=== PATIENT | female | born 1945 | race Caucasian/White ===

== ENCOUNTER → 2016-12-10 | Outpatient (CLI) | payer OTHER, MEDICARE | LOC: BHFA 08:30 | PROVIDERS: ATTEND Internal Medicine Interventional Cardiology | DX: I25.10 Atherosclerotic heart disease of native coronary artery without angina pectoris (principal) | CPT/HCPCS: 78452; 93017; A9500 ==

== ENCOUNTER → 2016-12-26 | Outpatient (CLI) | payer OTHER, MEDICARE | LOC: FCPNEURO 22:54 | PROVIDERS: ATTEND Student in an Organized Health Care Education/Training Program | DX: G47.33 Obstructive sleep apnea (adult) (pediatric) (principal) ==

== ENCOUNTER 2017-01-11 06:58 | Observation (INO) | payer OTHER, MEDICARE ==
[2017-01-11] MEDS ORDERED: NS 1,000 ML IV ONE (07:05)
[2017-01-11] MEDS ORDERED: MIDAZOLAM 2 MG/2 ML VIAL IVP ONE (07:05)
--- NOTE | 2017-01-11 07:23 | CPEKG ---
Heart Rate: 55 RR Interval: 1091 P-R Interval: 188 QRSD Interval: 92 QT Interval: 452 QTC Interval: 433 P [place]: 70 QRS [place]: -30 T Wave [place]: 71 EKG Severity - OTHERWISE NORMAL ECG - EKG Impression: SINUS RHYTHM EKG Impression: LEFT AXIS DEVIATION Electronically Signed By: Mckay Mancera 11-Jan-2017 11:57:22
[2017-01-11] MEDS ORDERED: ISOPROTERENOL HCL 0.2 MG/ML 5ML AMP ONE (07:53)
[2017-01-11] MEDS ORDERED: LIDOCAINE 1% 30 ML SDV ONE (07:53)
[2017-01-11] MEDS ORDERED: HEPARIN 10,000 UNIT/10 ML MDV ONE (07:53)
[2017-01-11] MEDS ORDERED: BUPIVACAINE 0.5% 30 ML SDV ONE (07:54)
[2017-01-11 07:56] LABS: % IMMATURE GRANULYOCYTES 0.2 % (0.0-1.1); ABSOLUTE IMMATURE GRANULOCYTES 0.01 10^3/uL (0.00-0.10); ADD DIFF? NO; ADD MORPH? NO; ADD SCAN? NO; ATYPICAL LYMPHOCYTE FLAG 0 (0-99); FRAGMENT RBC FLAG 0 (0-99); HEMATOCRIT 41.8 % (38.0-47.0); HEMOGLOBIN 14.2 g/dL (12.6-16.3); LEFT SHIFT FLG 0 (0-99); LIPEMIA HEMOLYSIS FLAG 90 (0-99); MEAN CELL HEMOGLOBIN 33.3 pg (27.9-34.1); MEAN CELL VOLUME 98.1 fL (81.5-99.8); MEAN PLATELET VOLUME 10.2 fL (8.7-11.7); PLATELET CLUMPS FLAG 30 (0-99); PLATELET COUNT 184 10^3/uL (150-400); RED BLOOD CELL COUNT 4.26 10^6/uL (4.18-5.33); RED CELL DISTRIBUTION WIDTH 12.9 % (11.5-15.2)
[2017-01-11 08:23] LABS: INR 0.99 (0.83-1.16)
[2017-01-11 08:24] LABS: APTT 30.4 SEC (23.0-38.0)
[2017-01-11 08:25] LABS: ANION GAP 7 mEq/L (8-16); CALCIUM 9.4 mg/dL (8.5-10.4); CARBON DIOXIDE 25 mEq/l (22-31); CHLORIDE 106 mEq/L (97-110); CREATININE 0.7 mg/dL (0.6-1.0); GLOMERULAR FILTRATION RATE > 60; GLUCOSE 93 mg/dL (70-100); MAGNESIUM 2.1 mg/dL (1.6-2.3); POTASSIUM 4.5 mEq/L (3.5-5.2); SODIUM 138 mEq/L (134-144)
[2017-01-11] MEDS ORDERED: PROPOFOL/EMULSION 500 MG/50 ML BOTTLE IV ONE ×6 (08:33→10:43)
[2017-01-11] MEDS ORDERED: PHENYLEPHRINE 10 MG/ML SDV ONE (08:43)
[2017-01-11] MEDS ORDERED: ROCURONIUM 50 MG/5 ML VIAL ONE ×2 (09:54→11:00)
[2017-01-11] MEDS ORDERED: ONDANSETRON 4 MG/2 ML VIAL ONE (11:04)
[2017-01-11] MEDS ORDERED: SUGAMMADEX SODIUM 200 MG/2 ML VIAL IVP ONE ×2 (11:08)
[2017-01-11] MEDS ORDERED: ATROPINE SULFATE 1 MG/10 ML SYR ONE (11:45)
[2017-01-11] MEDS ORDERED: ONDANSETRON 4 MG/2 ML VIAL IVP PRN (11:57)
[2017-01-11] MEDS ORDERED: ZOLPIDEM TARTRATE 5 MG TAB PO PRN (11:59)
[2017-01-11] MEDS ORDERED: fentaNYL 100 MCG/2 ML INJ ONE (12:07)
--- NOTE | 2017-01-11 12:07 | EPPROC ---
Electrophysiology Procedure Note: ELECTROPHYSIOLOGIC STUDY AND CATHETER MEDIATED ABLATION OF FOCAL RIGHT ATRIAL TACHYCARDIA PROCEDURES PERFORMED: 1. EP evaluation with RA/RV/LA pace/record, with arrhythmia induction 2. EP evaluation with RA/RV pace record, insert/reposition catheter, with arrhythmia induction 3. Intracardiac catheter ablation, SVT arrhythmogenic focus 4. 3D mapping 5. Second arrhythmia 5. Fluoroscopy INDICATION: Recurrent SVT Catheters and anesthesia: The patient arrived in the Electrophysiology Laboratory in the fasting state. The right clavicular region, right groin, and left groin area were prepped and draped in the usual sterile manner. Anesthesiologist Dr. Calderon administered propofol anesthesia. Appropriate non-invasive blood pressure, pulse oximetry and end-tidal CO2 monitoring was established. All catheters were placed percutaneously using the modified Seldinger technique , and advanced into position under fluoroscopic guidance. One #7 Portuguese deflectable octapolar electrode catheter was advanced to the His-bundle position via the left femoral vein (2mm spacing; except the proximal ring which was 25cm from the tip used for unipolar recordings). One #7 Portuguese deflectable catheter with 10 pairs of electrodes was placed via the left femoral vein into the coronary sinus. Programmed stimulation was performed from the right atrium, left atrium ( coronary sinus) and right ventricle. Parahisian pacing demonstrated all retrograde conduction over the AV node Heparin was administered to keep ACT > 200 seconds. Programmed stimulation of right atrium during infusion of isoproterenol 1-2 mcg/ min induced an atrial tachycardia. AV dissociation was induced with ventricular overdrive pacing confirming atrial tachycardia. 3 separate atrial tachycardias were seen: AT#1, CL 490 ms ablated at posterior and superior RA, lateral to cindy terminalis AT#2, CL 410 ms - ablated more septally in relation to AT#1 site AT#3, CL 380 ms ablated at SVC RA junction, septally Programmed stimulation in the baseline state and during infusion of isoproterenol 1, 2 mcg/min post ablation was performed. No tachycardia could be induced. The catheters were removed. The patient was transferred to the cardiovascular holding area in stable condition. Vascular access sheaths were removed in the holding area. There were no apparent complications. RESULTS A. Spontaneous Intervals: SCL 1065 ms AH 90 ms HV 35 ms B. Antegrade AV georgette function (decremental pacing) FPERP 410 ms WBB CL 400 ms No AH jump but AH gradually prolonged to 250 ms before WBB C. Retrograde AV georgette function (decremental pacing) FPERP 590 ms WBB CL 580 ms CONCLUSIONS: 1. Focal atrial tachycardia 3 separate foci at the superior aspect of the cindy terminalis. 2. Successful ablation of focal atrial tachycardias . 3. No apparent complications. Patient Problems: Problems Problem Status Onset Atrial tachycardia Acute
--- NOTE | 2017-01-11 12:23 | CPEKG ---
Heart Rate: 117 RR Interval: 513 P-R Interval: 214 QRSD Interval: 76 QT Interval: 324 QTC Interval: 452 P [place]: 0 QRS [place]: -32 T Wave [place]: 111 EKG Severity - ABNORMAL ECG - EKG Impression: SINUS TACHYCARDIA EKG Impression: PROBABLE LEFT ATRIAL ABNORMALITY EKG Impression: LEFT AXIS DEVIATION EKG Impression: LVH WITH SECONDARY REPOLARIZATION ABNORMALITY Electronically Signed By: Yovanny Sainz 13-Jan-2017 09:04:37
[2017-01-11] MEDS ORDERED: FLUoxetine 20 MG CAP PO SCH (15:00)
[2017-01-11] MEDS ORDERED: ATORVASTATIN CALCIUM 10 MG TAB PO SCH (15:00)
[2017-01-11 15:14] LABS: ANION GAP 9 mEq/L (8-16); CALCIUM 8.5 mg/dL (8.5-10.4); CARBON DIOXIDE 22 mEq/l (22-31); CHLORIDE 110 mEq/L (97-110); CREATININE 0.6 mg/dL (0.6-1.0); GLOMERULAR FILTRATION RATE > 60; GLUCOSE 108 mg/dL (70-100); MAGNESIUM 1.9 mg/dL (1.6-2.3); POTASSIUM 3.7 mEq/L (3.5-5.2); SODIUM 141 mEq/L (134-144)
[2017-01-11] MEDS ORDERED: NON-FORMULARY NEW DRUG (Lifitegrast [Xiidra] 1 EACH) EACHEYE SCH (21:00)
[2017-01-12] MEDS: FLUOROMETHOLONE 5 ML OPHT.BTL EACHEYE SCH ×2 (01:12→08:49)
[2017-01-12] MEDS: Lifitegrast [Xiidra] EACHEYE SCH ×2 (01:12→08:49)
[2017-01-12 05:26] LABS: % IMMATURE GRANULYOCYTES 0.2 % (0.0-1.1); ABSOLUTE IMMATURE GRANULOCYTES 0.01 10^3/uL (0.00-0.10); ADD DIFF? NO; ADD MORPH? NO; ADD SCAN? NO; ATYPICAL LYMPHOCYTE FLAG 10 (0-99); FRAGMENT RBC FLAG 0 (0-99); HEMATOCRIT 37.2 % (38.0-47.0); HEMOGLOBIN 12.3 g/dL (12.6-16.3); LEFT SHIFT FLG 0 (0-99); LIPEMIA HEMOLYSIS FLAG 80 (0-99); MEAN CELL HEMOGLOBIN 33.2 pg (27.9-34.1); MEAN CELL HEMOGLOBIN CONCENTR. 33.1 g/dL (32.4-36.7); MEAN CELL VOLUME 100.5 fL (81.5-99.8); MEAN PLATELET VOLUME 10.2 fL (8.7-11.7); PLATELET CLUMPS FLAG 0 (0-99); PLATELET COUNT 154 10^3/uL (150-400); RED CELL DISTRIBUTION WIDTH 13.2 % (11.5-15.2)
[2017-01-12 05:37] LABS: PROTIME(PATIENT) 13.1 SEC (12.0-15.0)
[2017-01-12 05:58] LABS: ANION GAP 6 mEq/L (8-16); CALCIUM 8.9 mg/dL (8.5-10.4); CARBON DIOXIDE 24 mEq/l (22-31); CHLORIDE 106 mEq/L (97-110); CREATININE 0.7 mg/dL (0.6-1.0); GLOMERULAR FILTRATION RATE > 60; GLUCOSE 91 mg/dL (70-100); POTASSIUM 4.7 mEq/L (3.5-5.2); SODIUM 136 mEq/L (134-144)
[2017-01-12 06:27] LABS: CREATINE KINASE-MB FRACTION < 0.22 ng/mL (0-3.19)
[2017-01-12 07:50] VITALS: BP 103/51; PULSE 64; RESP 15; TEMP 97.9; O2SAT 97
[2017-01-12] MEDS: ASPIRIN 81 MG CHEWABLE TAB PO SCH ×2 (08:48→10:23)
--- NOTE | 2017-01-12 08:59 | CPEKG ---
Heart Rate: 69 RR Interval: 870 P-R Interval: 232 QRSD Interval: 86 QT Interval: 424 QTC Interval: 455 P [place]: 23 QRS [place]: -17 T Wave [place]: 77 EKG Severity - ABNORMAL ECG - EKG Impression: SINUS RHYTHM EKG Impression: FIRST DEGREE AV BLOCK EKG Impression: BORDERLINE LEFT AXIS DEVIATION Electronically Signed By: Yovanny Sainz 13-Jan-2017 09:04:11
--- NOTE | 2017-01-12 20:23 | GDS ---
ADMISSION DIAGNOSES: 1. Supraventricular tachycardia. 2. Subclinical coronary artery disease with noted Agatston score of 40. 3. Hypercholesteremia. 4. History of breast cancer. DISCHARGE DIAGNOSES: 1. Atrial tachycardia. 2. Successful ablation of 3 foci atrial tachycardia foci in the cindy terminalis. 3. Subclinical coronary artery disease with Agatston score of 40. 4. Hypercholesteremia. 5. History of breast cancer. PROCEDURES DONE DURING HOSPITALIZATION: 1. Electrocardiogram. 2. Electrophysiology study. 3. Successful ablation of 3 separate foci causing atrial tachycardia of the cindy terminalis. 4. Echocardiogram. BRIEF HISTORY: Please see H and P. The patient is a 71-year-old female who has been reporting episodes of racing palpitations for at le ast 2 years. Episodes can last a few moments to the longest of 1 hour. It is often brought on by e xercise and heat. She did have a ZIO monitor done showing SVT. She does experience chest discomfor t with these episodes, but no other time. She has been unable to take medication due to baseline lo w BP and heart rate. She was seen by Dr. Mancera and felt to be an appropriate candidate for an EP stud y. Risks and benefits of the procedure were explained to the patient. She agreed. HOSPITAL COURSE: Patient was admitted through the CVC, prepped for procedure and taken to electroph ysiology lab. There, Dr. Mancera performed EP study finding 3 separate foci that cause atrial tachycard ia. He successfully ablated them with no complications. The patient was taken back to the CVC and ultimately to the PCU for overnight observation. Initially, when she arrived to the PCU, she was noted at 1140 and 1210 of having what appears to be 10-second to 20-second run of atrial tachycardia at a rate of 100 beats per minute. She did report mild palpitations at that time, but has had no further events. Since then, she has been noted to styles ve occasional premature ventricular contraction during her overnight telemetry. She has been up and walking the unit without symptoms. Denies any chest pressure or pain. Has had no bleeding issues at her groin site. PHYSICAL EXAMINATION: Done today: GENERAL APPEARANCE: Medium build, well-groomed, femal e. She is alert and oriented to person, place, time, and situation. Appears to be under no acute d istress. CURRENT VITAL SIGNS: Blood pressure of 103/51, heart rate 64 in sinus rhythm on the monit or, respirations 15, saturating 97% on room air. Temperature of 36.6 degrees Celsius. HEENT: Head is normocephalic. Lips and tongue are pink and moist with no signs of cyanosis. Conjunctivae pink . NECK: Trachea is midline. +2 carotid pulses bilateral. No auscultated bruits. No jugular vein distention. RESPIRATORY: Lungs clear to auscultation. No rhonchi, rales or wheezes. No accessor y muscle use. No intercostal muscle retraction noted. CARDIAC: Regular rate, regular rhythm. S1, S2. No S3, S4. No gallops, rubs or murmur noted. ABDOMEN: Soft, nontender. Bowel sounds x4 kimmie drants. No organomegaly. No palpable masses. SKIN: Soper, warm, dry. No cyanosis, no clubbing, n o peripheral edema. VASCULAR: +2 carotids bilateral. +2 radials bilateral. +2 dorsal, pedal and posterior tibial pulses bilateral. GROIN SITE: Catheter insertion site, bilateral groins, with no redness, swelling, drainage, ecchymosis, or hematoma. No auscultated bruit over either site. NEURO : Cranial nerves 2-12 grossly intact. LABORATORY STUDIES: Today show, WBC 6.60, hemoglobin of 12.3, hematocrit of 37.2, platelet count 15 4. INR 1.0. Sodium 136, potassium 4.7, chloride 106, CO2 24, BUN 15, creatinine 0.7, glucose 91, c alcium 8.9. CK 48, CK-MB fraction less than 0.22. Troponin of 0.190 (expected elevated troponin le rosalinda status post ablation). STUDIES: Electrophysiology and ablation procedure as above. A.M. electrocardiogram shows sinus rhythm with 1st degree AV block, borderline left axis deviation, inverted T-waves in aVL, premature atrial contractions. Preliminary echocardiogram showed normal LV systolic function with normal ejection fraction. No wal l motion abnormalities. No significant pericardial effusion. DISCHARGE DISPOSITION: Patient will be discharged home in stable condition. She is under activity restrictions of not lifting more than 10 pounds for the next week and no strenuous activity for the next 2 weeks. DISCHARGE MEDICATIONS: Please see discharge med reconciliation sheet. Note, the patient has been s tarted on aspirin therapy of 81 mg p.o. daily. DISCHARGE INSTRUCTIONS: Post ablation discharge instructions gone over with the patient and her hus band, including monitoring for signs of infection, activity restrictions, bleeding precautions, bath ing precautions, medication compliance, and DVT precautions. At the time of discharge, both patient and her verbalized understanding of all instructions and have no questions. They have been told that if they have any questions or concerns post discharge, they are to call our office or ret urn to the hospital. They have a followup appointment with Dr. Mancera on February 09. TOTAL TIME SPENT ON DISCHARGE: Greater than 30 minutes. /[id number]/MODL
[2017-01-13] MEDS ORDERED: NON-FORMULARY NEW DRUG (Simvastatin [Zocor] 20 MG) PO SCH (09:00)
== END 2017-01-12 11:53 | disposition home or self-care (01) ==
LOC: FCATH 06:58 → F2W 11:09
PROVIDERS: ADMIT Internal Medicine Cardiovascular Disease; ATTEND Internal Medicine Cardiovascular Disease
DX: I47.1 Supraventricular tachycardia (principal); E78.00 Pure hypercholesterolemia, unspecified; Z85.3 Personal history of malignant neoplasm of breast
CPT/HCPCS: 93005; 93306; 93613; 93621; 93623; 93653; 93655; C1730; C1731; C1732; J1644; J2370; J2405; J2704; J3010; J0461

== ENCOUNTER → 2017-01-19 | Outpatient (CLI) | payer OTHER, MEDICARE | LOC: BHFA 14:30 | PROVIDERS: ATTEND Internal Medicine Cardiovascular Disease | DX: R06.02 Shortness of breath (principal) ==

== ENCOUNTER → 2017-02-09 | Outpatient (CLI) | payer OTHER, MEDICARE | LOC: BHFA 13:30 | PROVIDERS: ATTEND Internal Medicine Cardiovascular Disease | DX: I47.1 Supraventricular tachycardia (principal) ==

== ENCOUNTER → 2017-05-11 | Outpatient (CLI) | payer OTHER, MEDICARE | LOC: FIMAGING 12:29 | PROVIDERS: ATTEND Psychiatry & Neurology Neurology | DX: R10.30 Lower abdominal pain, unspecified (principal) ==

== ENCOUNTER → 2017-10-12 | Outpatient (CLI) | payer OTHER, MEDICARE | LOC: FIMAGING 09:45 | PROVIDERS: ATTEND Internal Medicine | DX: Z13.820 Encounter for screening for osteoporosis (principal); M81.0 Age-related osteoporosis without current pathological fracture; R53.83 Other fatigue; Z85.3 Personal history of malignant neoplasm of breast ==

== ENCOUNTER → 2018-04-12 | Outpatient (CLI) | payer OTHER, MEDICARE | LOC: FIMAGING 17:02 | PROVIDERS: ATTEND Internal Medicine | DX: Q65.89 Other specified congenital deformities of hip (principal) ==

== ENCOUNTER → 2018-04-21 | Outpatient (CLI) | payer OTHER, MEDICARE | LOC: FIMAGING 14:52 | PROVIDERS: ATTEND Internal Medicine | DX: R10.30 Lower abdominal pain, unspecified (principal); R14.0 Abdominal distension (gaseous); R63.5 Abnormal weight gain; M79.652 Pain in left thigh; M79.651 Pain in right thigh; M79.1 Myalgia ==